=== PATIENT | female | born 1975 | race Caucasian/White ===

== ENCOUNTER 2017-12-19 22:50 | Emergency (ER) | payer SELFPAY ==
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
[2017-12-19] MEDS ORDERED: THIAMINE HCL(*) 200 MG/2 ML IN 100 MG, FOLIC ACID(*) 50 MG/10 ML INJ 1 MG, MULTIVITAMIN... IV ONE (23:03)
[2017-12-19] MEDS ORDERED: LORazepam 2 MG/ML VIAL IVP ONE (23:05)
[2017-12-19] MEDS ORDERED: LEVO88TA43 PO (23:09)
[2017-12-19] MEDS ORDERED: GABA-549 PO (23:09)
[2017-12-19] MEDS ORDERED: PARO-243 PO (23:09)
[2017-12-19 23:57] LABS: PLATELET COUNT, AUTOMATED 183 K/uL (150-450)
[2017-12-19 23:58] LABS: INR 1.01
--- NOTE | 2017-12-20 00:04 | EKG ---
[facility] PATIENT NAME: CARON NICOLE : [id number] MR: [id number] V: [id number] EXAM DATE: ORDERING PHYSICIAN: ROLY HERRON TECHNOLOGIST: [facility] Test Reason : NEURO Blood Pressure : / mmHG Vent. Rate : 087 BPM Atrial Rate : 087 BPM P-R Int : 156 ms QRS Dur : 082 ms QT Int : 404 ms P-R-T Axes : 064 017 050 degrees QTc Int : 486 ms Normal sinus rhythm Possible Left atrial enlargement Anterior infarct , age undetermined Abnormal ECG No previous ECGs available Confirmed by LISSETH WRIGHT ([id number]) on 12/20/2017 6:39:14 AM Referred By: Confirmed By:LISSETH WRIGHT
[2017-12-20] MEDS ORDERED: NS(*) 0.9% 1000 ML BAG 1,000 ML IV ONE (01:05)
--- NOTE | 2017-12-20 01:05 | RADIOLOGY IMAGING REPORT ---
FACILITY: [facility] PATIENT NAME: Tiana Chirinos : 1975 MR: [id number] V: [id number] EXAM DATE: ORDERING PHYSICIAN: ROLY HERRON TECHNOLOGIST: Location: [facility] Patient: Tiana Chirinos : 1975 Visit/Account:[id number] Date of Sevice: 12/19/2017 CT OF THE BRAIN WITHOUT CONTRAST HISTORY: Seizure PROCEDURE: 3.0 mm contiguous axial sections were performed through the brain. Sagittal and coronal r eformats were submitted. COMPARISON: None FINDINGS: BRAIN: Brain and intracranial structures: There is no mass lesion, hemorrhage or acute infarct. Orbits (included portions): Normal. Scalp: Normal. Skull: No acute findings. Paranasal sinuses and mastoid air cells (included portions): Minimal right maxillary mucosal thickeni ng. IMPRESSION: No evidence of acute intracranial abnormality. One of the following dose optimization techniques was utilized in the performance of this exam: Autom ated exposure control; adjustment of the mA and/or kV according to the patient's size; or use of an i terative reconstruction technique. Specific details can be referenced in the facility's radiology C T exam operational policy. Report Dictated By: Drew Sevilla MD at 12/20/2017 12:57 AM Report E-Signed By: Drew Sevilla MD at 12/20/2017 1:02 AM [id number]
[2017-12-20] MEDS ORDERED: FLUMAZENIL 0.1 MG/ML 5 ML VIAL IVP ONE ×3 (01:15→03:55)
[2017-12-20] MEDS ORDERED: ALBUTEROL/IPRATROPIUM 3 ML NEB NEB ONE ×2 (02:40→03:10)
[2017-12-20 04:20] VITALS: BP 102/71
== END 2017-12-20 04:48 | disposition home or self-care (01) ==
LOC: ER 23:42
DX: R56.9 Unspecified convulsions (principal); F10.129 Alcohol abuse with intoxication, unspecified; Y90.8 Blood alcohol level of 240 mg/100 ml or more; S70.12XA Contusion of left thigh, initial encounter; S70.11XA Contusion of right thigh, initial encounter; S30.0XXA Contusion of lower back and pelvis, initial encounter; S10.93XA Contusion of unspecified part of neck, initial encounter; R79.89 Other specified abnormal findings of blood chemistry; W17.89XA Other fall from one level to another, initial encounter
CPT/HCPCS: 36416; 70450; 80305; 80320; 81001; 82550; 82948; 83735; 84484; 84703; 85025; 85610; 85651; 85730; 93005; 94640; 96361; 96365; 96375; 96376; 99284; J2060; J3411; J3475; J3490; J7030; J7620; 82040; 82247; 82310; 82374; 82435; 82565; 82947; 84075; 84132; 84155; 84295; 84450; 84460; 84520